=== PATIENT | female | born 1960 | race Caucasian/White ===

== ENCOUNTER 2024-12-13 12:01 | Emergency (ER) | payer OTHER, SELFPAY ==
[2024-12-13 12:06] VITALS: BP 169/80
[2024-12-13 12:16] VITALS: BP 158/75
[2024-12-13 12:30] VITALS: BMI 31.4
[2024-12-13 13:00] VITALS: BP 152/65
--- NOTE | 2024-12-13 13:03 | ED.GENMED ---
History of Present Illness
General
Chief Complaint: Blood Pressure Problem
Source: patient
Time Seen by Provider: 12/13/24 12:35
History of Present Illness
History of Present Illness:
63-year-old female brought to the emergency room with her daughter for evaluation of multiple complaints. Patient has headache, abdominal discomfort, nausea, fatigue lower extremity cramping and has noted that her blood pressure was elevated over
the past 2 or 3 weeks. No recent change in medications. Patient was seen by her primary care doctor for the symptoms who recommended she take magnesium. No shortness of breath. She has had episodes of chest pain. No fever or chills. No cough.
No weight loss.
Phy Exam
Physical Exam
Physical Exam:
General: Awake, Alert, Oriented X3. No acute distress.
Vitals: Mildly elevated blood pressure, bradycardia
Head: Atraumatic
Eyes: Pupils equal, EOMI
Throat: Airway intact, no exudates
Neck: Trachea midline
Lungs: Clear and equal b/l
Heart: Regular rate, no murmurs
Abd: Soft, Nontender, No pulsatile mass
Neuro: Cranial nerves intact, muscle strength equal bilaterally, cerebellar exam normal
Skin: Warm, dry, no rash
Extremities: pulses equal b/l, no edema
Course
Orders/Labs/Results
Orders:
Orders
12/13/24 12:02
Electrocardiogram (*1) Urgent
Reason for Study: Hypertension, Benign
EKG- Treatment ONCE
12/13/24 12:43
Cardiac Monitoring- Treatment ONCE
12/13/24 13:02
0.9% Sodium Chloride 500 ml [Nss] 500 ml IV BOLUS
12/13/24 13:10
Complete Blood Count/With Diff Urgent
Troponin I Urgent
12/13/24 13:13
TSH Reflex To Free T4 Urgent
12/13/24 13:48
Urinalysis Reflex To Culture Urgent
Date Specimen was Collected: 12/13/24
Time Specimen was Collected: 13:43
Urine Microscopic Reflex Cult Urgent
Urine Culture Urgent
ERICK Source: U
Specimen Description:
Obtained by: Random
Date Specimen was Collected: 12/13/24
Time Specimen was Collected: 13:43
12/13/24 13:54
Comprehensive Metabolic Panel Urgent
Magnesium Urgent
Abnormal Lab Results
12/13/24 12/13/24 12/13/24
13:10 13:48 13:54
MPV 11.3 H fL
(7.4-10.4)
Chloride 109 H mmol/L
(98-107)
BUN 18 H mg/dl
(7-17)
Leukocyte Esterase Rfl 1+ A
(Negative)
Urine Bacteria (Reflex) Few A
(Negative)
12/13/24 13:10
12/13/24 13:54
Vital Signs
Initial and Last Documented VS:
Initial Vital Signs
Temp Pulse Resp BP Pulse Ox
98.5 F 51 18 169/80 99
12/13/24 12:06 12/13/24 12:06 12/13/24 12:06 12/13/24 12:06 12/13/24 12:06
Last Documented Vital Signs
Temp Pulse Resp BP Pulse Ox
98.5 F 45 16 173/62 97
12/13/24 12:06 12/13/24 15:30 12/13/24 15:56 12/13/24 15:06 12/13/24 15:30
MDM/Problems Addressed
Differential Diagnosis Includes:
Hyponatremia, hypokalemia, hypothyroidism, viral illness
MDM/Problems Addressed:
Patient presents with multiple complaints. Physical exam is benign. She is noted to be bradycardic but she does take atenolol and her blood pressure is adequate. Will check labs to exclude any electrolyte abnormality, anemia or hypothyroidism.
If screening labs are reasonable and she remains hemodynamically stable I suspect patient will be discharged for outpatient follow-up.
*Pulse Oximetry
SaO2: 99
Oxygen Mode of Delivery: Room air
Patient hypoxic: no
*EKG
Interpreted by ED Provider?: Yes
Interpretation: abnormal
Heart Rate: 53
Rate: bradycardiac
Rhythm: sinus
[place]: normal axis
Interval: normal interval
QRS Pattern: normal QRS
Ischemia: no ischemia
*[place] Interpretation
Rate: bradycardiac
Interpretation: abnormal
Rhythm: sinus
*Critical Care Note
Total Time (30-74mins, 75-104mins- exclusive of procedures): Not Applicable
ED Attending Note
-
Portions of this chart may have been created with voice recognition software.� Occasional wrong word or��sound alike� substitutions may have occurred due to the inherent limitations of voice recognition software.
Discharge Plan
Departure
Patient Disposition: Home (Routine Discharge)
Date of Disposition: 12/13/24
Time of Disposition: 15:43
Patient with high blood pressure during this ER visit?: Yes
Condition: Good
Discharge Problem:
Uncontrolled hypertension
Instructions: High Blood Pressure (DC)
Referrals:
Los Honeycutt MD [Family Provider, Internal Medicine]
Activity Restrictions/Additional Instructions:
You can increase the dose of amlodipine to 10mg a day. Follow up with your doctor in the next few days for a recheck.
Interventions
Interventions:
*Risk Screen - Suicide Last Done: 12/13/24 12:06
*General Assessment Last Done: 12/13/24 12:30
*Neglect/Abuse Screening Last Done: 12/13/24 12:06
*ED- Fall Risk Assessment Last Done: 12/13/24 12:30
*ED COVID-19 Vaccine History Last Done: 12/13/24 12:30
*Nursing Disposition Last Done: 12/13/24 15:56
ED- Cardiac Assessment Last Done: 12/13/24 12:40
ED- Neurological Assessment Last Done: 12/13/24 12:40
ED- Pulmonary Assessment Last Done: 12/13/24 12:40
Discharge Date and Time
Discharge Date/Time: 12/13/24 15:57
Print Language: [place]
[2024-12-13 13:23] LABS: Hematocrit 37.8 % (37.0-47.0); Hemoglobin 12.8 g/dL (12.0-16.0); Mean Corp Hgb Conc. 33.9 g/dL (33.0-37.0); Mean Corpuscular Volume 85.1 fL (81.0-99.0); Nucleated Red Blood Cells % 0 %; Platelet Count 176 10^3/uL (130-400); Red Cell Dist. Width 13.7 % (11.5-14.5)
[2024-12-13] MEDS: NSS 500 IV (13:26)
[2024-12-13 13:41] VITALS: BP 158/62
--- NOTE | 2024-12-13 13:56 | EDRN ---
Pt OOB to BR at this time to obtain urine spec.
--- NOTE | 2024-12-13 13:56 | EDRN ---
CMP hemolyzed and redrawn at this time.
[2024-12-13 13:58] LABS: Troponin I 0.015 ng/ml
[2024-12-13 14:00] VITALS: BP 172/48
--- NOTE | 2024-12-13 14:00 | EDRN ---
Dr. Burks said ok to pt having water and pt brought cup of water.
[2024-12-13 14:08] LABS: Urine Character Clear (Clear)
[2024-12-13 14:25] LABS: Urine Red Blood Cell 0-2 /HPF (0-2)
[2024-12-13 14:38] LABS: ALT (SGPT) 16 U/L (0-35); AST (SGOT) 24 U/L (14-36); Albumin 3.8 g/dl (3.5-5.0); Alkaline Phosphatase 45 U/L (38-126); Blood Urea Nitrogen 18 mg/dl (7-17); Calcium 8.6 mg/dl (8.4-10.2); Carbon Dioxide 24 mmol/L (22-30); Chloride 109 mmol/L (98-107); Estimated Creatinine Clearance 76 ml/min; Glucose 85 mg/dl (70-99); Magnesium 1.8 mg/dl (1.6-2.3); Potassium 4.0 mmol/L (3.5-5.1); Sodium 138 mmol/L (135-145); Total Protein 6.5 g/dl (6.3-8.2); eGFR > 60.00
[2024-12-13 15:06] VITALS: BP 173/62
== END 2024-12-13 15:57 | disposition home or self-care (01) ==
LOC: EMR 12:01
PROVIDERS: EMERGENCY PHYSICIAN Emergency Medicine; FAMILY PHYSICIAN Internal Medicine
DX: I10 Essential (primary) hypertension (principal); R51.9 Headache, unspecified; R10.9 Unspecified abdominal pain; R53.83 Other fatigue
CPT/HCPCS: 99283; 96360; 96361; 80053; 81003; 81015; 83735; 84443; 84484; 85025; 87086; 93005